=== PATIENT | male | born 1975 | race Two or more races ===

== ENCOUNTER 2018-02-22 16:27 | Emergency (ER) | payer BC ==
[~2018-02-22] VITALS: Ht 188 cm; Wt 105.0 kg
[2018-02-22 18:51] LABS: APPEARANCE SL.HAZY ((CLEAR)); BILIRUBIN NEGATIVE; BLOOD SMALL; COLOR YELLOW ((YELLOW)); GLUCOSE (STRIP) NEGATIVE; KETONES NEGATIVE; LEUKOCYTES NEGATIVE; NITRITE NEGATIVE; PROTEIN (STRIP) NEGATIVE; SPECIFIC GRAVITY 1.008 (1.000-1.030); UROBILINOGEN 0.2 MG/DL (0.2-1.0)
[2018-02-22 18:56] LABS: BACTERIA RARE /HPF; EPITHELIAL CELLS RARE /HPF; MUCUS 2+ /LPF; RED BLOOD CELLS 0-5 /HPF (0-5); UCUL ADDED? NO; WHITE BLOOD CELLS 0-5 /HPF (0-5)
[2018-02-22] MEDS ORDERED: TRAMADOL HCL50 MG PO (19:44)
[2018-02-22] MEDS ORDERED: SKELAXIN800 MG PO (19:44)
[2018-02-22] MEDS ORDERED: PREDNISONE10 M1 PO (19:44)
[2018-02-22 20:08] VITALS: BP 132/79
== END 2018-02-22 20:09 | disposition home or self-care (01) ==
LOC: EME 16:27
PROVIDERS: Physician Assistant
DX: M54.42 Lumbago with sciatica, left side (principal); G89.29 Other chronic pain; F17.200 Nicotine dependence, unspecified, uncomplicated
CPT/HCPCS: 72131; 81003; 99281; 99283; J1885; J2930